=== PATIENT | female | born 1985 | race Caucasian/White ===

== ENCOUNTER 2017-07-20 04:04 | Emergency (ER) | payer BC ==
[~2017-07-20] VITALS: Ht 165.1 cm; Wt 79.2 kg
[2017-07-20 04:46] LABS: ALBUMIN 4.5 g/dL (3.2-4.8)
[2017-07-20 04:47] LABS: CHLORIDE 104 mEq/L (99-109); POTASSIUM 3.5 mEq/L (3.7-5.4); SODIUM 138 mEq/L (136-147)
[2017-07-20 04:49] LABS: GLUCOSE 89 mg/dL (70-99); TOTAL PROTEIN 7.4 g/dL (6.4-8.3)
[2017-07-20 04:50] LABS: HEMATOCRIT 38.9 % (36.0-46.0); HEMOGLOBIN 13.3 G/DL (11.9-15.5); MCH 29.6 PG (29.0-34.0); MCHC 34.2 G/DL (30.0-36.0); MCV 86.6 FL (83-99); PLATELET COUNT 232 K/uL (156-360); RBC DIS.WIDTH-SD 38.5 % (39-53); RED BLOOD COUNT 4.49 M/uL (3.80-5.20); WHITE BLOOD COUNT 6.1 K/uL (4.1-10.2)
[2017-07-20 04:51] LABS: TOTAL BILIRUBIN 0.3 mg/dL (0.0-1.0)
[2017-07-20 04:52] LABS: ALKALINE PHOSPHATASE 65 IU/L (3-129)
[2017-07-20 04:52] LABS: APPEARANCE SL.HAZY ((CLEAR)); BILIRUBIN NEGATIVE; BLOOD NEGATIVE; COLOR YELLOW ((YELLOW)); GLUCOSE (STRIP) NEGATIVE; KETONES 20; LEUKOCYTES NEGATIVE; NITRITE NEGATIVE; PROTEIN (STRIP) 30; SPECIFIC GRAVITY 1.031 (1.000-1.030); UROBILINOGEN 0.2 MG/DL (0.2-1.0)
[2017-07-20 04:53] LABS: CREATININE 0.7 mg/dL (0.6-1.3)
[2017-07-20 04:54] LABS: AST (GOT) 14 IU/L (2-34); GFR ESTIMATE (CALCULATED) > 59 mL/min/; UREA NITROGEN (BUN) 9 mg/dL (9-23)
[2017-07-20 04:55] LABS: ALT (GPT) 16 IU/L (3-49)
[2017-07-20 04:55] LABS: BACTERIA NONE SEEN /HPF; EPITHELIAL CELLS 2+ /HPF; MUCUS TRACE /LPF; RED BLOOD CELLS 0-5 /HPF (0-5); UCUL ADDED? NO; WHITE BLOOD CELLS 0-5 /HPF (0-5)
[2017-07-20 05:02] LABS: QUANTITATIVE HCG < 4.0 MIU/ML
[2017-07-20] MEDS ORDERED: FLEXERIL10 MG PO (05:42)
[2017-07-20 06:31] VITALS: BP 110/65
== END 2017-07-20 06:32 | disposition home or self-care (01) ==
LOC: EME 04:04
DX: M46.1 Sacroiliitis, not elsewhere classified (principal); Z72.0 Tobacco use
CPT/HCPCS: 80053; 81003; 84702; 85027; 99281; 99284